=== PATIENT | female | born 1970 | race Caucasian/White ===

== ENCOUNTER 2017-02-03 20:48 | Emergency (ER) | payer MEDICAID ==
[~2017-02-03] VITALS: Ht 165.1 cm; Wt 87.0 kg
--- OUTSIDE RECORDS SUMMARY | 2017-02-03 20:55 | XMS REPORT | Referral Summary ---
Author Organization Unknown Address Unknown Phone Unavailable Care Team Providers Care Women'S Studies Professor Name Role Phone Vlad Loera Primary Care Physician [phone] Encounter VC Date(s): 01/11/15 - 01/11/15 [facility], [place] [address] [place] [address] [facility] Discharge Diagnosis: Acute URI Discharge Disposition: Home or Self Care Attending Physician: Kristin Sorto MD Attending Physician: Provider, Immediate Care Admitting Physician: Provider, Immediate Care Vital Signs Most recent to 1 oldest [Reference Range]: Temperature Oral 37.1 degC [35.8-37.3 degC] (01/11/15 6:24 PM) Peripheral Pulse 98 bpm Rate [60-100 bpm] (01/11/15 6:24 PM) Blood Pressure 138/76 mmHg [90-140/60-90 mmHg] (01/11/15 6:24 PM) Most recent to 1 oldest [Reference Range]: SpO2 97 % (01/11/15 6:24 PM) Problem List Condition Effective Dates Status Health Status Informant Right Little Finger 2010 Active Distal Phalanx Articular Fx(Confirmed) Joint 2013 Active stiffness(Confirmed) 1 Cervicalgia(Confirme 2014 Active d)2 Obesity(Confirmed) Active patient [facility] Allergies, Adverse Reactions, Alerts No Known Medication Allergies Medications Effexor Oral, 0 Refill(s) Start Date: 12/08/14 Status: Ordered ProAir HFA 90 mcg/inh inhalation aerosol 2 puffs, Inhalation, QID, as needed for wheezing, # 8.5 g, 0 Refill(s), Pharmacy : [facility] Start Date: 10/21/14 Status: Ordered Synthroid 50 mcg (0.05 mg) oral tablet See Instructions, TAKE 1 TABLET BY MOUTH DAILY, # 30 tabs, 5 Refill(s), eRx: [facility], TAKE 1 TABLET BY MOUTH DAILY Special Instructions: TAKE 1 TABLET BY MOUTH DAILY Start Date: 11/23/14 Status: Ordered Valtrex 1 g oral tablet See Instructions, TAKE 1 TABLET BY MOUTH EVERY DAY, # 30 tabs, 1 Refill(s), eRx : [facility], TAKE 1 TABLET BY MOUTH EVERY DAY Special Instructions: TAKE 1 TABLET BY MOUTH EVERY DAY Start Date: 01/08/15 Status: Ordered Wellbutrin Oral, 0 Refill(s) Start Date: 10/21/14 Status: Ordered Results No data available for this section Immunizations Vaccine Date Refusal Reason tetanus/diphth/pertuss (Tdap) adult/adol 09/08/10 Procedures Procedure Date Related Diagnosis Body Site section x1 Tubal ligation Social History Social History Type Response Smoking Status Never smoker Assessment and Plan No data available for this section
--- OUTSIDE RECORDS SUMMARY | 2017-02-03 20:55 | XMS REPORT | Referral Summary ---
Author Organization Unknown Address Unknown Phone Unavailable Care Team Providers Care Eye Specialist Name Role Phone EvaristoVlad Primary Care Physician [phone] Encounter VC Date(s): 01/20/15 - 01/20/15 Via Sandra [facility], Alejandra Rodgers, Family Medicine [address], [facility] [address] [place], [place] [address] Discharge Diagnosis: Bronchitis Discharge Diagnosis: Sinusitis Discharge Disposition: Home or Self Care Attending Physician: Jesse Joyner MD Admitting Physician: Jesse Joyner MD Vital Signs No data available for this section Problem List Condition Effective Dates Status Health [...] # 8.5 g, 0 Refill(s), Pharmacy : [facility] Start Date: 10/21/14 Status: Ordered Synthroid 50 mcg (0.05 mg) oral tablet See Instructions, TAKE 1 TABLET BY MOUTH DAILY, # 30 tabs, 5 Refill(s), eRx: [facility], TAKE 1 TABLET BY MOUTH DAILY Special Instructions: TAKE 1 TABLET BY MOUTH DAILY Start Date: 11/23/14 Status: Ordered Valtrex 1 g oral tablet See Instructions, TAKE 1 TABLET BY MOUTH EVERY DAY, # 30 tabs, 1 Refill(s), eRx : [facility], TAKE 1 TABLET BY MOUTH EVERY DAY Special Instructions: TAKE 1 TABLET BY MOUTH EVERY DAY Start Date: 01/08/15 Status: Ordered Wellbutrin Oral, 0 Refill(s) Start Date: 10/21/14 Status: Ordered Zithromax Z-Flash 250 mg oral tablet 1 packets, Oral, Daily, as directed on package labeling, X 5 days, # 6 tabs, 0 Refill(s), [facility], 1 packets Oral Daily,x5 days,Instr:as directed on package labeling Special Instructions: as directed on package labeling Start Date: 01/20/15 Stop Date: 01/25/15 Status: Ordered Results No data available for this section Immunizations Vaccine Date Refusal Reason tetanus/diphth/pertuss (Tdap) adult/adol 09/08/10 Procedures Procedure Date Related Diagnosis Body Site section x1 Tubal ligation Social History Social History Type Response Smoking Status Never smoker Assessment and Plan Extracted from: Title: Office Visit Note Author: Jesse Joyner MD Date: 01/20/15 Assessment/Plan 1.Sinusitis I prescribed a Z-Flash and advised Mucinex DM, fluids, rest and ibuprofen. Follow-up if not improving through the week. Ordered: Office Visit Level 3 Est 79808 Return to Clinic 2.Bronchitis See above. Ordered: Office Visit Level 3 Est 57692 Return to Clinic Orders: azithromycin, 1 packets, Oral, Daily, as directed on package labeling , X 5 days, # 6 tabs, 0 Refill(s), Pharmacy: [facility], 1 packets Oral Daily,x5 days,Instr:as directed on package labeling
--- OUTSIDE RECORDS SUMMARY | 2017-02-03 20:56 | XMS REPORT | Referral Summary ---
Author Organization Unknown Address Unknown Phone Unavailable Care Team Providers Care Veterinary Surgeon Name Role Phone Vlad Loera Primary Care Physician [phone] Encounter VC Date(s): 12/14/14 - 12/14/14 Via [facility]iza, Alejandra Rodgers, Family Medicine [address], [place] [address] [place], [place] [address] Discharge Diagnosis: Well woman exam with routine gynecological exam Discharge Disposition: Home or Self Care Attending Physician: Jose Loera MD Admitting Physician: Jose Loera MD Vital Signs Most recent to 1 oldest [Reference Range]: Blood Pressure 110/80 mmHg [90-140/60-90 mmHg] (12/14/14 9:24 AM) Problem List Condition Effective Dates Status Health Status Informant Right Little Finger 2010 Active Distal Phalanx Articular Fx(Confirmed) Joint 2013 Active stiffness(Confirmed) 1 Cervicalgia(Confirme 2013 Active d)2 Obesity(Confirmed) Active patient 1[facility] 2[facility] Allergies, Adverse Reactions, Alerts No Known Medication Allergies Medications Effexor Oral, 0 Refill(s) Start Date: 12/08/14 Status: Ordered ProAir HFA 90 mcg/inh inhalation aerosol 2 puffs, Inhalation, QID, as needed for wheezing, # 8.5 g, 0 Refill(s), Pharmacy : [facility] Start Date: 10/21/14 Status: Ordered Synthroid 50 mcg (0.05 mg) oral tablet See Instructions, TAKE 1 TABLET BY MOUTH DAILY, # 30 tabs, 5 Refill(s), eRx: [facility], TAKE 1 TABLET BY MOUTH DAILY Special Instructions: TAKE 1 TABLET BY MOUTH DAILY Start Date: 11/23/14 Status: Ordered Valtrex 1 g oral tablet See Instructions, TAKE 1 TABLET BY MOUTH EVERY DAY, # 30 tabs, eRx: [facility], TAKE 1 TABLET BY MOUTH EVERY DAY Special Instructions: TAKE 1 TABLET BY MOUTH EVERY DAY Start Date: 11/23/14 Status: Ordered Wellbutrin Oral, 0 Refill(s) Start [...]
--- OUTSIDE RECORDS SUMMARY | 2017-02-03 20:56 | XMS REPORT | Referral Summary ---
Author Organization Unknown Address Unknown Phone Unavailable Care Team Providers Care Supervisor Gate Services Name Role Phone Vlad Loera Primary Care Physician [phone] Encounter VC Date(s): 12/08/14 - 12/08/14 [facility], [place] [address] [place] [address] [facility] Discharge Diagnosis: Acute UTI Discharge Disposition: Home or Self Care Attending Physician: Provider, Immediate Care Attending Physician: Segun Anna DO Admitting Physician: Provider, Immediate Care Vital Signs Most recent to 1 oldest [Reference Range]: Temperature Oral 37 degC [35.8-37.3 degC] (12/08/14 6:16 PM) Peripheral Pulse 78 bpm Rate [60-100 bpm] (12/08/14 6:16 PM) Blood Pressure 143/85 mmHg [90-140/60-90 mmHg] *HI* (12/08/14 6:16 PM) Most recent to 1 oldest [Reference Range]: SpO2 98 % (12/08/14 6:16 PM) Problem List Condition Effective Dates Status Health Status Informant Obesity(Confirmed) Active patient Allergies, Adverse Reactions, Alerts No Known Medication Allergies Medications Cipro 500 mg oral tablet 1 tabs, Oral, q12hr, X 7 days, # 14 tabs, 0 Refill(s), Pharmacy: [facility], 1 tabs Oral q12hr,x7 days Start Date: 12/08/14 Stop Date: 12/15/14 Status: Ordered Effexor Oral, 0 Refill(s) Start Date: 12/08/14 Status: Ordered ProAir HFA 90 mcg/inh inhalation aerosol 2 puffs, Inhalation, QID, as needed for wheezing, # 8.5 g, 0 Refill(s), Pharmacy : [facility] Start Date: 10/21/14 Status: Ordered Synthroid 50 mcg (0.05 mg) oral tablet See Instructions, TAKE 1 TABLET BY MOUTH DAILY, # 30 tabs, 5 Refill(s), eRx: [facility], TAKE 1 TABLET BY MOUTH DAILY Special Instructions: TAKE 1 TABLET BY MOUTH DAILY Start Date: 11/23/14 Status: Ordered Valtrex 1 g oral tablet See Instructions, TAKE 1 TABLET BY MOUTH EVERY DAY, # 30 tabs, eRx: [facility], TAKE 1 TABLET BY MOUTH EVERY DAY Special Instructions: TAKE 1 TABLET BY MOUTH EVERY DAY Start Date: 11/23/14 Status: Ordered Wellbutrin Oral, 0 Refill(s) Start Date: 10/21/14 Status: Ordered Results No data available for this section Immunizations No data available for this section Procedures No data available for this section Social History Social History Type Response Smoking Status Never smoker Assessment and Plan Extracted from: Title: Office Visit Note Author: Segun Anna DO Date: 12/08/14 Assessment/Plan Acute UTI Ordered: ciprofloxacin, 1 tabs, Oral, q12hr, X 7 days, # 14 tabs, 0 Refill(s), Pharmacy : [facility], 1 tabs Oral q12hr,x7 days
--- OUTSIDE RECORDS SUMMARY | 2017-02-03 20:56 | XMS REPORT ---
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
--- OUTSIDE RECORDS SUMMARY | 2017-02-03 20:56 | XMS REPORT ---
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 Unknown Non Drug Allergy Oct, Unknown SOCIAL HISTORY No smoking Hx information available PLAN OF CARE Activity Details Pending Test CULTURE, URINE, ROUTINE prn,Reason: VITAL SIGNS Height 65 in 2016-10-17 Weight 193.6 lbs 2016-10-17 BMI 32.21 kg/m2 2016-10-17 Heart Rate 72 /min 2016-10-17 Temperature 98.1 degrees Fahrenheit 2016-10-17 Blood pressure systolic 155 mm Hg 2016-10-17 Blood pressure diastolic 91 mm Hg 2016-10-17 MEDICATIONS Medication Instructions Dosage Frequency Start Date End Date Duration Status BuPROPion HCl (SR) 150 MG Orally every other day x1 week then daily thereafter 1 tablet 90 days Active Oxybutynin Chloride ER 5 MG Orally Once a day 1 tablet 24h Sep, 17 Nov, 2016 30 day(s) Active Venlafaxine HCl ER 150 MG Orally as directed 1 capsule with food every other day x1 week then 1 daily thereafter 90 days Active Acyclovir 400 MG Orally Twice a day as needed 1 tablet 90 days Active Synthroid 50 MCG Orally as directed 1/2 tab once daily x2 weeks then 1 tab daily thereafter 90 days Active Bactrim DS 800-160 MG Orally Twice a day 1 tablet 12h 13 Oct, 2016Oct 5 days Active RESULTS Name Result Date Reference Range Urinalysis (UA) (GM) 2016-10-17 COLOR yellow CLARITY cloudy GLU NEG MOI NEG KET NEG SG 1.025 BLO 1+ pH 7.0 PRO NEG URO 0.2 NIT NEG MONROE 1+ PROCEDURES Procedure Date Ordered Related Diagnosis Body Site URINALYSIS, AUTO, W/O SCOPE Oct 17, 2016 URINE CULTURE/COLONY COUNT Oct 17, 2016 Office Visit, Est Pt., Level 3 Oct 17, 2016 URINE BACTERIA CULTURE Oct 17, 2016 IMMUNIZATIONS No Known Immunizations
--- OUTSIDE RECORDS SUMMARY | 2017-02-03 20:56 | XMS REPORT ---
Author Wendy Romeo Organization [employer] Address Unknown Phone Unavailable Care Team Providers Care Claims Customer Service Representative Name Role Phone Wendy Patel CP Unavailable Allergies, Adverse Reactions, Alerts Substance Reaction Event Type N.K.D.A. 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 Active Problem Urge incontinence N39.41 Active Problem Hypothyroidism, unspecified E03.9 Active Assessment Other fatigue R53.83 Active Assessment Hypothyroidism, unspecified E03.9 Active Assessment Pain in right elbow M25.521 Active Assessment Encounter for screening for lipoid disorders Z13.220 Active Assessment Other hypertrophic disorders of the skin L91.8 Active Assessment Other hemorrhoids K64.8 Active Assessment Urge incontinence N39.41 Active Medications Medication Code System Code Instructions Start Date End Date Status Dosage Synthroid [facility] [address]-17 50 MCG Orally as directed 1/2 tab once daily x2 weeks then 1 tab daily thereafter Acyclovir [facility] [address]-34 400 MG Orally Twice a day as needed 1 tablet Oxybutynin Chloride ER [facility] [address]-04 5 MG Orally Once a day Sep 22, 2016 Nov 21, 2016 1 tablet Venlafaxine HCl ER [facility] [address]-38 150 MG Orally as directed 1 capsule with food every other day x1 week then 1 daily thereafter Anusol-HC [facility] [address]-49 2.5 % Rectal Twice a day; do not use more than 2 weeks continuous Sep 22, 2016 Nov 21, 2016 1 application to affected area BuPROPion HCl (SR) [facility] [address]-92 150 MG Orally every other day x1 week then daily thereafter 1 tablet Procedures Procedure Coding System Code Date Office Visit, New Pt., Level 3 CPT-4 03799 Sep 22, 2016 Vital Signs Date/Time: Sep 22, 2016 BMI 32.45 Index Weight 195 lbs Height 65 in Blood Pressure Diastolic 93 mm Hg Blood Pressure Systolic 138 mm Hg Cardiac Monitoring Heart Rate 90 /min Results No Known Results Summary Purpose [employer] Submission
--- OUTSIDE RECORDS SUMMARY | 2017-02-03 20:56 | XMS REPORT | Referral Summary ---
Author Author [facility] [place], [facility] Organization [facility] [place] Address Unknown Phone Unavailable Care Team Providers Care Insurance Claim Representative Name Role Phone Vlad Loera Primary Care Physician [phone] Encounter VC Date(s): 04/17/16 - 04/17/16 [facility] [place], Family Medicine [address], [facility] [address] [place], [place] [address] Discharge Diagnosis: Hypothyroid Discharge Diagnosis: Obesity Discharge Diagnosis: Recurrent boils Discharge Diagnosis: Chronic right hip pain Discharge Disposition: 01-Home or Self Care Attending Physician: Jose Loera MD Vital Signs Most recent to 1 oldest [Reference Range]: Blood Pressure 132/90 mmHg [90-140/60-90 mmHg] (04/17/16 9:30 AM) Problem List Condition Effective Dates Status Health Status Informant Right Little Finger 2010 Active Distal Phalanx Articular Fx(Confirmed) Joint 2013 Active stiffness(Confirmed) 1 Cervicalgia(Confirme 2013 Active d)2 Obesity(Confirmed) Active patient 1[facility] 2[facility] Allergies, Adverse Reactions, Alerts No Known Medication Allergies Medications acyclovir 400 mg oral tablet 400 mg 1 tabs, Oral, BID, # 60 tabs, 11 Refill(s), Pharmacy: [facility], 1 tabs Oral BID Start Date: 04/17/16 Status: Ordered Bactrim DS 800 mg-160 mg oral tablet 1 tabs, Oral, BID, X 14 days, # 28 tabs, 0 Refill(s), Pharmacy: [facility] Start Date: 04/17/16 Stop Date: 05/01/16 Status: Ordered buPROPion 150 mg/24 hours (XL) oral tablet, extended release See Instructions, TAKE 1 TABLET BY MOUTH EVERY MORNING, # 30 tabs, 1 Refill(s), Pharmacy: [facility] Start Date: 04/07/16 Status: Ordered levothyroxine 50 mcg (0.05 mg) oral tablet See Instructions, TAKE 1 TABLET BY MOUTH DAILY, # 30 tabs, eRx: [facility], TAKE 1 TABLET BY MOUTH DAILY Start Date: 04/06/16 Status: Ordered naproxen 500 mg oral tablet 500 mg 1 tabs, Oral, BID, # 40 tabs, 0 Refill(s), Pharmacy: [facility], 1 tabs Oral BID Start Date: 04/17/16 Status: Ordered ProAir HFA 90 mcg/inh inhalation aerosol 2 puffs, Inhalation, QID, as needed for wheezing, # 8.5 g, 0 Refill(s), Pharmacy : [facility] Start Date: 10/21/14 Status: Ordered venlafaxine 150 mg oral capsule, extended release See Instructions, TAKE 1 CAPSULE BY MOUTH EVERY MORNING, # 30 unknown unit, 1 Refill(s), eRx: [facility], TAKE 1 CAPSULE BY MOUTH EVERY MORNING Start Date: 02/29/16 Status: Ordered Results Chemistry Most recent to 1 oldest [Reference Range]: Sodium Lvl [135-144 138 mEq/L mEq/L] (04/17/16 10:18 AM) Potassium Lvl 4.0 mEq/L [3.5-5.2 mEq/L] (04/17/16 10:18 AM) Chloride [99-111 105 mEq/L mEq/L] (04/17/16 10:18 AM) CO2 [22-31 mEq/L] 27 mEq/L (04/17/16 10:18 AM) AGAP [3-20] 6 (04/17/16 10:18 AM) BUN [7-19 mg/dL] 16 mg/dL (04/17/16 10:18 AM) Glucose Lvl [70-99 89 mg/dL mg/dL] (04/17/16 10:18 AM) Creatinine Lvl 0.84 mg/dL [0.57-1.11 mg/dL] (04/17/16 10:18 AM) eGFR [>60 mL/min] >60 mL/min 1 (04/17/16 10:18 AM) Calcium Lvl 9.1 mg/dL [8.9-10.5 mg/dL] (04/17/16 10:18 AM) Albumin Lvl [3.5-5.0 4.3 gm/dL gm/dL] (04/17/16 10:18 AM) Total Protein 7.1 gm/dL [6.4-8.3 gm/dL] (04/17/16 10:18 AM) Globulin [1.8-4.0 2.8 gm/dL gm/dL] (04/17/16 10:18 AM) ALT [0-55 U/L] 17 U/L (04/17/16 10:18 AM) AST [5-34 U/L] 15 U/L (04/17/16 10:18 AM) Alk Phos [40-150 82 U/L U/L] (04/17/16 10:18 AM) Bili Total [0.2-1.2 0.6 mg/dL mg/dL] (04/17/16 10:18 AM) TSH with Reflex Free 1.53 T4 [0.35-4.94] (04/17/16 10:18 AM) 1Result Comment: Multiply eGFR results by 1.21 for race. Immunizations Vaccine Date Refusal Reason tetanus/diphth/pertuss (Tdap) adult/adol 09/08/10 Procedures Procedure Date Related Diagnosis Body Site Collection of venous blood by venipuncture 04/17/16 section x1 Tubal ligation Social History Social History Type Response Smoking Status Never smoker Assessment and Plan No data available for this section
--- OUTSIDE RECORDS SUMMARY | 2017-02-03 20:56 | XMS REPORT | Referral Summary ---
Author Author [facility] [place] Organization [facility] [place] Address Unknown Phone Unavailable Care Team Providers Care Budget Specialist Name Role Phone Vlad Loera Primary Care Physician [phone] Encounter VC Date(s): 06/01/16 - 06/01/16 [facility] [place], [facility] [address], [facility] [address] [place], [place] [address] Discharge Disposition: 01-Home or Self Care Attending Physician: Jose Loera MD Vital Signs Most recent to 1 oldest [Reference Range]: Peripheral Pulse 77 bpm Rate [60-100 bpm] (06/01/16 8:48 AM) Blood Pressure 128/82 mmHg [90-140/60-90 mmHg] (06/01/16 8:48 AM) SpO2 98 % (06/01/16 8:48 AM) Problem List Condition Effective Dates Status [...] BID, # 60 tabs, 11 Refill(s), Pharmacy: [facility], 1 tabs Oral BID Start Date: 04/17/16 Status: Ordered buPROPion 150 mg/24 hours (XL) oral tablet, extended release See Instructions, TAKE 1 TABLET BY MOUTH EVERY MORNING, # 30 tabs, 1 Refill(s), Pharmacy: [facility] Start Date: 04/07/16 Status: Ordered levothyroxine 50 mcg (0.05 mg) oral tablet See Instructions, TAKE 1 TABLET BY MOUTH DAILY, # 30 tabs, 2 Refill(s), eRx: [facility], TAKE 1 TABLET BY MOUTH DAILY Start Date: 05/12/16 Status: Ordered naproxen 500 mg oral tablet 500 mg 1 tabs, Oral, BID, # 40 tabs, 0 Refill(s), Pharmacy: [facility], 1 tabs Oral BID Start Date: 04/17/16 Status: Ordered ProAir HFA 90 mcg/inh inhalation aerosol 2 puffs, Inhalation, QID, as needed for wheezing, # 8.5 g, 0 Refill(s), Pharmacy : [facility] Start Date: 10/21/14 Status: Ordered venlafaxine 150 mg oral capsule, extended release See Instructions, TAKE 1 CAPSULE BY MOUTH EVERY MORNING, # 30 unknown unit, eRx : [facility], TAKE 1 CAPSULE BY MOUTH EVERY MORNING Start Date: 05/12/16 Status: Ordered Results No data available for this section Immunizations Vaccine Date Refusal Reason tetanus/diphth/pertuss (Tdap) adult/adol 09/08/10 Procedures Procedure Date Related Diagnosis Body Site section x1 Tubal ligation Social History Social History Type Response Smoking Status Never smoker Assessment and Plan No data available for this section
--- OUTSIDE RECORDS SUMMARY | 2017-02-03 20:56 | XMS REPORT ---
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
[2017-02-03 21:01] VITALS: Ht 165.1 cm; Wt 87.0 kg
[2017-02-03] MEDS ORDERED: KETOROLAC 30mg/ml INJECTION IV ONE (21:45)
[2017-02-03] MEDS ORDERED: ONDANSETRON 4mg/2ml INJECTION IV ONE (21:45)
[2017-02-03] MEDS ORDERED: NORMAL SALINE 1,000 ML IV ONE (21:45)
[2017-02-03 21:56] LABS: BLOOD, URINE NEGATIVE (NEGATIVE); COLOR,URINE YELLOW (YELLOW); LEUKOCYTE ESTERASE ,URINE NEGATIVE (NEGATIVE); NITRITE,URINE NEGATIVE (NEGATIVE); UROBILINOGEN,URINE 0.2 EU/DL (NORMAL)
[2017-02-03] MEDS ORDERED: IOHEXOL 300 MG/ML 75ml INJECTION ONE (22:00)
[2017-02-03] MEDS ORDERED: SALINE FLUSH 10ml SYRINGE ONE (22:00)
[2017-02-03] MEDS ORDERED: NORMAL SALINE 100 ML ONE (22:00)
[2017-02-03 22:34] LABS: BASOPHILS % (AUTO) 0.5 % (0-2); EOSINOPHILS # (AUTO) 0.1 T/MM3 (0-0.5); EOSINOPHILS % (AUTO) 2.2 % (0-4); HCT - HEMATOCRIT 37.2 % (36-46); HGB - HEMOGLOBIN 12.3 GM/DL (12-16); IMMATURE GRANULOCYTE # (AUTO) 0.01 T/MM3 (0.00-0.03); IMMATURE GRANULOCYTE % (AUTO) 0.2 % (0.0-0.5); LYMPHOCYTES # (AUTO) 2.3 T/MM3 (1-4.8); LYMPHOCYTES % (AUTO) 40.2 % (23-45); MEAN CORPUSCULAR HGB 27.6 UUG (26-34); MEAN CORPUSCULAR HGB CONC(MCHC 33.1 GM/DL (31-37); MEAN CORPUSCULAR VOLUME 83.4 UM3 (80-100); MONOCYTES # (AUTO) 0.5 T/MM3 (0-0.8); MONOCYTES % (AUTO) 8.8 % (0-9.0); NEUTROPHILS #(AUTO)-ABSOLUTE 2.8 T/MM3 (1.8-7.7); NEUTROPHILS % (AUTO) 48.1 % (33-66); RED BLOOD COUNT 4.46 M/MM3 (4.00-5.20); WBC - WHITE BLOOD COUNT 5.8 T/MM3 (4.5-11.0)
[2017-02-03 22:43] LABS: ALBUMIN 4.1 G/DL (3.5-5.0); ALBUMIN/GLOBULIN RATIO 1.2 RATIO (1.1-2.2); ALKALINE PHOSPHATASE 81 U/L (38-126); ALT (SGPT) 26 U/L (9-52); ANION GAP 13 MEQ/L (5-15); AST (SGOT) 16 U/L (14-36); BUN/CREATININE RATIO 17 RATIO (6-26); CALCIUM 9.2 MG/DL (8.4-10.2); CHLORIDE 107 MEQ/L (98-107); CO2 - CARBON DIOXIDE 25 MEQ/L (22-30); CREATININE 0.9 MG/DL (0.7-1.2); GLOMERULAR FILTRATION RATE 67; GLUCOSE 84 MG/DL (65-110); LIPASE 58 U/L (23-300); POTASSIUM 3.9 MEQ/L (3.6-5); SODIUM 145 MEQ/L (134-144); TOTAL PROTEIN 7.6 G/DL (6.3-8.2)
--- NOTE | 2017-02-03 22:43 | ERPDOC ---
Departure Disposition Decision Date: Feb 04, 2017 Disposition Decision Time: 00:09 Disposition: 01 DISCHARGED HOME, SELF-CARE Impression Impression Impression: Primary Impression: Viral colitis Additional Impression: Viral gastroenteritis Severity: Moderate Condition: Improved Seen By: Physician only Patient Instructions: Colitis (ED), Gastroenteritis (ED) Problems/Meds/Labs Reviewed?: Yes Medications reviewed and manag: Yes Additional Instructions: Compazine 10 mg, one tablet up to 4 times daily as needed for cramps or nausea Use Aleve, 2 tablets twice daily or ibuprofen 3 tablets 4 times daily as needed for pain and fever See your doctor for any ongoing symptoms, or any worsening. Follow up care ordered?: Yes Mental Status: Alert, Oriented HPI - Abdominal Pain General Chief Complaint: Abdominal Pain Stated Complaint: LEFT SIDE OVARY PAIN Time Seen by Provider: 20:57 Source: patient History/Exam Limitations: no limitations HPI - Abdominal Pain Initial Comments 5 day history of LLQ achey and cramping pain, nausea and chills. No better even after normal BM today. Sx started the day she finished her last menstrual cycle. Occurred At: home Onset: Rapid Duration: 1 week Quality: aching, cramping Location: LLQ Radiation: no radiation Associated Symptoms: nausea/vomiting, DENIES: back pain, chest pain, diaphoresis, fatigue, fever/chills, headache, heartburn, rash, shortness of breath, swelling/mass in abdomen, syncope, weakness Hx of Similar Symptoms: No Allergies: Coded Allergies: No Known Allergies (Unverified , 02/03/17) Past History Past Medical History Metabolic: hypothyroidism GI: constipation Psychological: depression Social History Smoking Status: Never smoker Does patient use chewing tobac: No Second Hand Exposure: No Substance Use Type: does not use Alcohol Intake: none Record Review Pertinent history updated: Yes Review of Systems Constitutional Constitutional: DENIES: appetite decrease, appetite increase, chills, dizziness , fever, weakness ENMT Ears: DENIES: pain Hearing: DENIES: hearing loss, tinnitus Balance: DENIES: vertigo Mouth/Throat: DENIES: change in swallowing, change in voice, hoarsness, painful swallowing, sore throat Cardiovascular Cardiac: DENIES: chest pain, dyspnea on exertion Rhythm/Rate: DENIES: irregular beat, palpitations, tachycardia Vascular: DENIES: pedal edema Pulmonary Respiratory: DENIES: cough, dyspnea, pleuritic chest pain GI Upper Abdomen: nausea, vomiting, DENIES: dysphagia, food intolerances, heartburn/indigestion, hematemesis, pain Lower Abdomen: pain, DENIES: blood in stool, lexie-colored stools, constipation , diarrhea, melena, painful BM General: DENIES: burning, dysuria, frequency, pain, urgency Musculoskeletal General: DENIES: cramps, joint pain, joint swelling, pain, weakness Integumentary Skin: DENIES: rash, sores Neurological General: DENIES: headache, numbness, tingling, vertigo, weakness Physical Exam General General Nourishment: well nourished, well developed, appears stated age, no acute distress General Body Habitus: well groomed Vitals and Pain First Documented Vital Signs Date Time Temp Pulse Resp B/P Pulse Ox O2 Delivery O2 Flow Rate FiO2 02/03/17 21:01 98.3 83 16 137/79 98 Room Air Weight: Kilograms: 87.000 Height (feet): 5 Height (inches): 5.00 Triage Pain Scale: Normal Exams: Head: Normocephalic w/o trauma Eyes: Pupils are PERRLA w/ EOMI, No scleral icterus, irritation, or foreign bodies noted ENMT: No facial trauma, nasal exudates, pharyngeal erythema, or exudates are noted Neck: Full range of motion, without adenopathy, JVD, bruits or thyromegaly Chest/Resp: Clear all purcell, with good airflow, and symmetry bilaterally CV: Regular rate and rhythm, without murmur or gallop, Pulses 2+ all extremities, capillary refill, <2 seconds all ext., no pedal edema noted Lymphatic: No lymphadenopathy, or lymphedema noted Musculoskeletal: No tenderness, or deformity noted, good range of motion, all extremities Integumentary: No rashes, hives, or bruising noted, hair and nails, without abnormality Neurologic: Patient is alert, and oriented, cranial nerves, motor/sensory/ cerebellar, exams w/o gross deficits, to observation Psychiatric: Patient exhibits, appropriate attention, emotion and affect Abdomen (brief) Abdominal Brief: FOUND: bowel normo active x4, soft, tender (significant left lower quadrant tenderness, right to left referred tenderness, and questionable rebound in the left lower quadrant.), NOT FOUND: distended, hepatosplenomegaly, pulsatile mass Progress Results/Orders Orders Procedure Category Date Status Time Iv Lock (Ed Only) EDM 02/03/17 Transmitted 21:39 Cbc W/Auto LAB 02/03/17 Complete Diff-Reflex Manual Cmp - Comprehensive LAB 02/03/17 Complete Metabolic Lipase LAB 02/03/[address] Abd/Pelvis CT 02/03/17 Taken W/Contrast Only Ua, Dip Wreflex LAB 02/03/17 Complete Microsc & Website Project Manager 21:39 LAB 02/03/17 Complete Qualitative, Urine 21:39 Ketorolac (Toradol) PHA 02/03/17 Complete 21:45 Ondansetron Inj PHA 02/03/17 Complete (Zofran) 21:45 Normal Saline (Normal PHA 02/03/17 Complete Saline Iv) 21:45 Iohexol (Omnipaque) PHA 02/03/17 Complete 22:00 Normal Saline (Ns) PHA 02/03/17 Complete 22:00 Saline Flush (Iv PHA 02/03/17 Complete Flush) 22:00 Lab Results Laboratory Tests Test 02/03/17 21:11 02/03/17 22:27 Urine Collection Type Cleancatch-midstream Urine Color Yellow Urine Turbidity Sl cloudy Urine pH 5.5 Urine Specific [place] <=1.005 Urine Protein Negative Urine Glucose (UA) Negative Urine Ketones Negative Urine Blood Negative Urine Nitrite Negative Urine Bilirubin Negative Urine Urobilinogen 0.2EU/DL Urine Leukocyte Esterase Negative Urinalysis Comment Microscopic not ind. Urine Test Negative White Blood Count 5.8T/MM3 Red Blood Count 4.46M/MM3 Hemoglobin 12.3GM/DL Hematocrit 37.2% Mean Corpuscular Volume 83.4UM3 Mean Corpuscular Hemoglobin 27.6UUG Mean Corpuscular Hemoglobin Concent 33.1GM/DL RDW Standard Deviation 44.4FL Platelet Count 307T/MM3 Mean Platelet Volume 10.0UM3 Immature Granulocyte % (Auto) 0.2% Neutrophils (%) (Auto) 48.1% Lymphocytes (%) (Auto) 40.2% Monocytes (%) (Auto) 8.8% Eosinophils (%) (Auto) 2.2% Basophils (%) (Auto) 0.5% Absolute Immature Granulocyte (auto 0.01T/MM3 Absolute Neutrophils (auto) 2.8T/MM3 Absolute Lymphocytes (auto) 2.3T/MM3 Absolute Monocytes (auto) 0.5T/MM3 Absolute Eosinophils (auto) 0.1T/MM3 Absolute Basophils (auto) 0.0T/MM3 Turbidity < 20 Sodium Level 145MEQ/L Potassium Level 3.9MEQ/L Chloride Level 107MEQ/L Carbon Dioxide Level 25MEQ/L Anion Gap 13MEQ/L Blood Urea Nitrogen 15.0MG/DL Creatinine 0.9MG/DL Glomerular Filtration Rate Calc 67 BUN/Creatinine Ratio 17RATIO Glucose Level 84MG/DL Calculated Osmolality 279MOSM/KG Calcium Level 9.2MG/DL Total Bilirubin 0.60MG/DL Icterus Index < 2 Aspartate Amino Transf (AST/SGOT) 16U/L Alanine Aminotransferase (ALT/SGPT) 26U/L Alkaline Phosphatase 81U/L Total Protein 7.6G/DL Albumin 4.1G/DL Globulin 3.5G/DL Albumin/Globulin Ratio 1.2RATIO Lipase 58U/L Chemistry Specimen Hemolysis < 15 Medications Current ED Medications Ketorolac Tromethamine (Toradol) 30 mg O ONCE IV Last administered on 22:34; Start 02/03/17 at 21:45; Stop 02/03/17 at 21:46; Status DC Ondansetron HCl 4 mg 4 mg O ONCE IV Last administered on 02/03/17 22:36; Start 02/03/17 at 21:45; Stop 02/03/17 at 21:46; Status DC Sodium Chloride (Normal Saline IV) 1,000 ml @ 0 mls/hr Q0M ONCE IV Last administered on 02/03/17 22:33; Start 02/03/17 at 21:45; Stop 02/03/17 at 21:46; Status DC Iohexol 1 bottle 1 bottle STK-MED ONCE .ROUTE ; Start 02/03/17 at 22:00; Stop 02/03/17 at 22:01; Status DC Sodium Chloride (NS) 100 ml @ As Directed STK-MED ONCE .ROUTE ; Start 02/03/17 at 22:00; Stop 02/03/17 at 22:01; Status DC Sodium Chloride (Iv Flush) 10 ml STK-MED ONCE .ROUTE ; Start 02/03/17 at 22:00; Stop 02/03/17 at 22:01; Status DC Progress Progress Patient given Toradol, 1 L normal saline, and Zofran 4 mg IV - to relief CBC - n CMP/L - n UA/P - n CT abdomen pelvis - n Vision appears to have viral syndrome with gastroenteritis/colitis. We'll treat with NSAIDs and Compazine at home, follow up with her primary for any worsening or ongoing symptoms ROS EDMONDS MD Feb 03, 2017 22:43
[2017-02-04] MEDS ORDERED: PROC-14 PO (00:12)
[2017-02-04] MEDS ORDERED: PROCHLORPERAZINE 10MG (PrePack) SENT HOME ONE (00:15)
[2017-02-04 00:30] VITALS: BP 132/71; PULSE 70; RESP 16; TEMP 98.3; O2SAT 100
--- NOTE | 2017-02-04 08:25 | DI ---
Indication: ITS.REASON: LLQ pain PROCEDURE: CT ABD/PELVIS W/CONTRAST ONLY: Encounter: Initial Comparison: None Technique: Axial CT images were performed through the abdomen and pelvis after the administration of intravenous contrast. Coronal and sagittal two-dimensional reformats. Automated Exposure Control and Iterative Reconstruction dose reducing techniques were utilized. Contrast: Omnipaque 300 100 mL Findings: The lung bases are clear. The liver is normal. The gallbladder, spleen, pancreas and adrenal glands are within normal limits. The kidneys are normal. No abdominal or pelvic adenopathy. Bladder is normal. Uterus and ovaries are within normal limits. No bowel obstruction. Bone windows are unremarkable. Impression: No acute disease process seen. Negative exam. There is a preliminary report by [facility]. .
== END 2017-02-04 00:30 | disposition home or self-care (01) ==
LOC: ED 20:48
DX: A09 Infectious gastroenteritis and colitis, unspecified (principal); A08.4 Viral intestinal infection, unspecified
CPT/HCPCS: 74177; 80053; 81003; 81025; 83690; 85025; 96361; 96374; 96375; 99284; J1885; J2405; J7030; J7050; Q9967